=== PATIENT | male | born 1950 | race Caucasian/White ===

== ENCOUNTER 2019-09-04 01:40 | Observation (INO) ==
[2019-09-04] MEDS ORDERED: Isovue-370 500 ML BOTTLE IVP ONE (01:53)
[2019-09-04 02:34] LABS: Basophils % 0.4 %; Eosinophils # 0.1 K/mcL (0.0-0.6); Eosinophils % 1.8 %; Hematocrit 42.6 % (37.5-50.1); Hemoglobin 14.2 g/dL (12.9-16.9); Immature Granulocytes % 0.2 % (0-4); Lymphocytes # 0.9 K/mcL (0.6-4.6); Lymphocytes % 20.7 %; Mean Corpuscular HGB Conc 33.3 g/dL (31.6-35.5); Mean Corpuscular Hemoglobin 29.7 pg (28.0-33.3); Mean Corpuscular Volume 89.1 fL (83.0-100.0); Mean Platelet Volume 10.3 fL (9.4-12.4); Monocytes # 0.6 K/mcL (0.0-1.3); Monocytes % 12.3 %; Neutrophils # 2.9 K/mcL (1.6-8.9); Platelet Count 146 K/mcL (140-400); Red Blood Count 4.78 M/mcL (4.19-5.50); Red Cell Distribution Width 14.4 % (11.5-14.5); Segmented Neutrophils % 64.6 %; White Blood Count 4.6 K/mcL (4.3-11.1)
[2019-09-04 02:40] LABS: Prothrombin Time 11.6 Seconds (9.4-12.1)
[2019-09-04 02:42] LABS: Activated Partial Thrombo Time 28.5 Seconds (26.0-36.0)
[2019-09-04 02:56] LABS: Alanine Aminotransferase 11 Units/L (7-52); Albumin 4.1 g/dL (3.5-5.7); Albumin/Globulin Ratio 1.4 (1.1-2.2); Alkaline Phosphatase 95 Units/L (34-104); Amylase 53 Units/L (29-103); Aspartate Amino Transferase 17 Units/L (13-39); BUN/Creatinine Ratio 27 (6-26); Bilirubin,Indirect 0.5 mg/dL (0.0-1.0); Bilirubin,Total 0.5 mg/dL (0.3-1.0); Blood Urea Nitrogen 37 mg/dL (8-23); Calcium 10.1 mg/dL (8.6-10.3); Carbon Dioxide 30 mEq/L (23-29); Chloride 101 mEq/L (98-107); Glucose 165 mg/dL (70-105); Lipase 7 Units/L (11-82); Osmolality,Calculated 298 (280-300); Potassium 4.7 mEq/L (3.5-5.1); Sodium 138 mEq/L (136-145); Total Protein 7.1 g/dL (6.4-8.9); Troponin I < 0.03 ng/mL (< 0.04); eGFR For African Americans > 60 (> 60); eGFR For Non-African Americans 51 (> 60)
[2019-09-04 03:55] LABS: Bilirubin,Urine Small (Negative); Blood,Urine Negative (Negative); Clarity,Urine Clear (Clear); Color,Urine Yellow (Yellow); Glucose,Urine (UA) Normal (Normal); Ketones,Urine Trace mg/dL (Negative); Leukocyte Esterase,Urine Negative (Negative); Nitrite,Urine Negative (Negative); PH,Urine 5.5 pH Units (5.0-8.0); Protein,Urine Trace mg/dL (Neg-Trace); Specific Gravity,Urine 1.025 (1.010-1.025); Urobilinogen,Urine Normal (Normal)
[2019-09-04] MEDS ORDERED: Acetaminophen 325 MG TABLET PO PRN (07:21)
[2019-09-04] MEDS ORDERED: Naloxone 0.4 MG/ML INJ IVP PRN (07:21)
[2019-09-04] MEDS ORDERED: Ondansetron 4 MG/2 ML VIAL IVP PRN (07:21)
[2019-09-04] MEDS ORDERED: Nitroglycerin 0.4 MG TAB.SUBL SL PRN (07:26)
[2019-09-04] MEDS ORDERED: NON-FORMULARY MEDICATION 1 EACH EACH (Divalproex Sodium [Depakote] 250 MG) PO SCH (09:00)
[2019-09-04] MEDS: Aspirin Enteric Coated 81 MG Tablet PO SCH (09:21)
[2019-09-04] MEDS: carvediloL 6.25 MG TABLET PO SCH (09:22)
[2019-09-04] MEDS: Gabapentin 300 MG CAPSULE PO SCH ×3 (09:22→20:34)
[2019-09-04] MEDS: risperiDONE 0.25 MG TABLET PO SCH (09:22)
[2019-09-04] MEDS: D5% in Lactated Ringers 1,000 ML IVC SCH ×2 (10:39→23:53)
[2019-09-04] MEDS: Clotrimazole/Betameth Dip CRM 45 APPL/45 GM TUBE TP SCH (10:39)
[2019-09-04] MEDS ORDERED: Dextrose Gel 15 GM/37.5 ML TUBE PO PRN ×2 (13:54)
[2019-09-04] MEDS ORDERED: D5% in Water 1,000 ML IVC PRN (13:54)
[2019-09-04] MEDS ORDERED: *HR* Dextrose 50 % in Water (Syg) 50 ML SYRINGE IVP PRN (13:54)
[2019-09-04] MEDS: Divalproex Sodium 125 MG CAPSULE PO SCH ×2 (16:06→20:34)
[2019-09-04] MEDS: Insulin LISPRO 300 UNITS/3 ML VIAL SQ SCH (17:38)
[2019-09-04] MEDS: *HR* Heparin 5,000 UNIT/ML VIAL SQ SCH (17:38)
[2019-09-04] MEDS: Melatonin 3 MG TABLET PO SCH (20:33)
[2019-09-05] MEDS: Insulin LISPRO 300 UNITS/3 ML VIAL SQ SCH ×4 (01:07→18:04)
[2019-09-05] MEDS: D5% in Lactated Ringers 1,000 ML IVC SCH (04:35)
[2019-09-05] MEDS: *HR* Heparin 5,000 UNIT/ML VIAL SQ SCH ×2 (05:32→15:22)
[2019-09-05] MEDS ORDERED: Haloperidol Lactate 5 MG/ML VIAL IM ONE ×2 (06:41→19:56)
[2019-09-05] MEDS: Aspirin Enteric Coated 81 MG Tablet PO SCH (08:02)
[2019-09-05] MEDS: risperiDONE 0.25 MG TABLET PO SCH (08:02)
[2019-09-05] MEDS: Lisinopril 20 MG TABLET PO SCH (08:02)
[2019-09-05] MEDS: carvediloL 6.25 MG TABLET PO SCH (08:03)
[2019-09-05] MEDS: Gabapentin 300 MG CAPSULE PO SCH ×3 (08:03→22:17)
[2019-09-05] MEDS: Clotrimazole/Betameth Dip CRM 45 APPL/45 GM TUBE TP SCH (08:03)
[2019-09-05 14:01] LABS: Basophils % 0.9 %; Eosinophils # 0.1 K/mcL (0.0-0.6); Eosinophils % 1.8 %; Hematocrit 44.2 % (37.5-50.1); Hemoglobin 15.3 g/dL (12.9-16.9); Immature Granulocytes % 0.2 % (0-4); Lymphocytes # 0.7 K/mcL (0.6-4.6); Mean Corpuscular HGB Conc 34.6 g/dL (31.6-35.5); Mean Corpuscular Hemoglobin 29.8 pg (28.0-33.3); Mean Platelet Volume 9.8 fL (9.4-12.4); Monocytes # 0.4 K/mcL (0.0-1.3); Monocytes % 8.8 %; Neutrophils # 3.2 K/mcL (1.6-8.9); Platelet Count 151 K/mcL (140-400); Red Blood Count 5.14 M/mcL (4.19-5.50); Red Cell Distribution Width 13.9 % (11.5-14.5); Segmented Neutrophils % 72.3 %; White Blood Count 4.4 K/mcL (4.3-11.1)
[2019-09-05 14:18] LABS: BUN/Creatinine Ratio 23 (6-26); Blood Urea Nitrogen 17 mg/dL (8-23); Calcium 9.4 mg/dL (8.6-10.3); Carbon Dioxide 25 mEq/L (23-29); Chloride 101 mEq/L (98-107); Glucose 146 mg/dL (70-105); Magnesium 1.7 mg/dL (1.6-2.6); Osmolality,Calculated 288 (280-300); Phosphorous 2.9 mg/dL (2.7-4.5); Potassium 4.5 mEq/L (3.5-5.1); Sodium 137 mEq/L (136-145); eGFR For African Americans > 60 (> 60); eGFR For Non-African Americans > 60 (> 60)
[2019-09-05 15:01] LABS: Estimated Average Glucose 154 mg/dl
[2019-09-05] MEDS: Divalproex Sodium 125 MG CAPSULE PO SCH ×3 (15:26→22:16)
[2019-09-05] MEDS: Melatonin 3 MG TABLET PO SCH (22:17)
[2019-09-06] MEDS: Insulin LISPRO 300 UNITS/3 ML VIAL SQ SCH ×4 (00:19→18:47)
[2019-09-06] MEDS: Melatonin 3 MG TABLET PO PRN ×2 (02:03→23:33)
[2019-09-06] MEDS: *HR* Heparin 5,000 UNIT/ML VIAL SQ SCH ×2 (05:36→15:33)
[2019-09-06] MEDS: Gabapentin 300 MG CAPSULE PO SCH ×3 (09:55→23:34)
[2019-09-06] MEDS: Lisinopril 20 MG TABLET PO SCH (09:55)
[2019-09-06] MEDS: Aspirin Enteric Coated 81 MG Tablet PO SCH (09:55)
[2019-09-06] MEDS: risperiDONE 0.25 MG TABLET PO SCH (09:56)
[2019-09-06] MEDS: Clotrimazole/Betameth Dip CRM 45 APPL/45 GM TUBE TP SCH (09:56)
[2019-09-06] MEDS: carvediloL 6.25 MG TABLET PO SCH (09:56)
[2019-09-06] MEDS: Divalproex Sodium 125 MG CAPSULE PO SCH ×2 (15:34→23:34)
[2019-09-06] MEDS: Melatonin 3 MG TABLET PO SCH (23:32)
[2019-09-07] MEDS: Insulin LISPRO 300 UNITS/3 ML VIAL SQ SCH ×4 (00:46→16:27)
[2019-09-07] MEDS: *HR* Heparin 5,000 UNIT/ML VIAL SQ SCH ×2 (07:05→16:07)
[2019-09-07 07:33] LABS: Basophils % 0.5 %; Eosinophils # 0.1 K/mcL (0.0-0.6); Eosinophils % 1.4 %; Hematocrit 42.5 % (37.5-50.1); Immature Granulocytes % 0.2 % (0-4); Lymphocytes # 0.7 K/mcL (0.6-4.6); Lymphocytes % 17.1 %; Mean Corpuscular HGB Conc 35.3 g/dL (31.6-35.5); Mean Platelet Volume 10.3 fL (9.4-12.4); Monocytes # 0.4 K/mcL (0.0-1.3); Monocytes % 8.8 %; Neutrophils # 3.1 K/mcL (1.6-8.9); Platelet Count 169 K/mcL (140-400); Red Cell Distribution Width 13.8 % (11.5-14.5); White Blood Count 4.3 K/mcL (4.3-11.1)
[2019-09-07 07:55] LABS: BUN/Creatinine Ratio 22 (6-26); Blood Urea Nitrogen 17 mg/dL (8-23); Calcium 9.5 mg/dL (8.6-10.3); Carbon Dioxide 30 mEq/L (23-29); Chloride 98 mEq/L (98-107); Glucose 162 mg/dL (70-105); Osmolality,Calculated 289 (280-300); Potassium 4.6 mEq/L (3.5-5.1); Sodium 137 mEq/L (136-145); eGFR For African Americans > 60 (> 60); eGFR For Non-African Americans > 60 (> 60)
[2019-09-07] MEDS: risperiDONE 0.25 MG TABLET PO SCH (09:18)
[2019-09-07] MEDS: Aspirin Enteric Coated 81 MG Tablet PO SCH (09:18)
[2019-09-07] MEDS: carvediloL 6.25 MG TABLET PO SCH ×2 (09:18→16:06)
[2019-09-07] MEDS: Gabapentin 300 MG CAPSULE PO SCH ×3 (09:18→20:28)
[2019-09-07] MEDS: Lisinopril 20 MG TABLET PO SCH (09:18)
[2019-09-07] MEDS: Clotrimazole/Betameth Dip CRM 45 APPL/45 GM TUBE TP SCH (09:21)
[2019-09-07] MEDS: Divalproex Sodium 125 MG CAPSULE PO SCH ×2 (16:07→20:27)
[2019-09-08] MEDS: *HR* Heparin 5,000 UNIT/ML VIAL SQ SCH ×2 (06:27→16:19)
[2019-09-08 06:43] LABS: Basophils % 0.8 %; Eosinophils # 0.1 K/mcL (0.0-0.6); Eosinophils % 2.1 %; Hematocrit 46.3 % (37.5-50.1); Immature Granulocytes % 0.4 % (0-4); Lymphocytes # 0.8 K/mcL (0.6-4.6); Lymphocytes % 17.5 %; Mean Corpuscular HGB Conc 34.6 g/dL (31.6-35.5); Mean Corpuscular Hemoglobin 30.4 pg (28.0-33.3); Mean Corpuscular Volume 87.9 fL (83.0-100.0); Mean Platelet Volume 10.1 fL (9.4-12.4); Monocytes # 0.6 K/mcL (0.0-1.3); Monocytes % 11.5 %; Neutrophils # 3.2 K/mcL (1.6-8.9); Platelet Count 134 K/mcL (140-400); Red Blood Count 5.27 M/mcL (4.19-5.50); Red Cell Distribution Width 14.3 % (11.5-14.5); Segmented Neutrophils % 67.7 %; White Blood Count 4.8 K/mcL (4.3-11.1)
[2019-09-08 07:26] LABS: BUN/Creatinine Ratio 25 (6-26); Blood Urea Nitrogen 26 mg/dL (8-23); Calcium 9.2 mg/dL (8.6-10.3); Carbon Dioxide 22 mEq/L (23-29); Chloride 100 mEq/L (98-107); Glucose 130 mg/dL (70-105); Osmolality,Calculated 291 (280-300); Potassium 4.1 mEq/L (3.5-5.1); Sodium 137 mEq/L (136-145); eGFR For African Americans > 60 (> 60); eGFR For Non-African Americans > 60 (> 60)
[2019-09-08] MEDS ORDERED: Haloperidol Lactate 5 MG/ML VIAL IM ONE (08:08)
[2019-09-08] MEDS ORDERED: diazePAM 5 MG TABLET PO ONE (08:44)
[2019-09-08] MEDS: risperiDONE 0.25 MG TABLET PO SCH (08:48)
[2019-09-08] MEDS: Clotrimazole/Betameth Dip CRM 45 APPL/45 GM TUBE TP SCH (09:47)
[2019-09-08] MEDS: carvediloL 6.25 MG TABLET PO SCH ×2 (10:07→16:30)
[2019-09-08] MEDS: Gabapentin 300 MG CAPSULE PO SCH ×3 (10:07→19:53)
[2019-09-08] MEDS: Insulin LISPRO 300 UNITS/3 ML VIAL SQ SCH ×3 (10:07→16:19)
[2019-09-08] MEDS: Lisinopril 20 MG TABLET PO SCH (10:07)
[2019-09-08] MEDS: Aspirin Enteric Coated 81 MG Tablet PO SCH (10:07)
[2019-09-08] MEDS: Divalproex Sodium 125 MG CAPSULE PO SCH ×2 (16:19→19:53)
[2019-09-08] MEDS ORDERED: Insulin LISPRO 300 UNITS/3 ML VIAL SQ SCH (21:00)
[2019-09-08] MEDS ORDERED: *HR* LORazepam 2 MG/ML VIAL IVP PRN (23:27)
[2019-09-08] MEDS ORDERED: risperiDONE 1 MG TABLET PO ONE (23:30)
[2019-09-08] MEDS ORDERED: *HR* LORazepam 1 MG TABLET PO PRN (23:36)
[2019-09-08 23:58] LABS: VBG HCO3 30 mEq/L (21-27); VBG PCO2 52 mmHg (41-51); VBG PH 7.37 pH Units (7.32-7.42); VBG PO2 43 mmHg (25-50)
[2019-09-09 05:51] LABS: Basophils % 0.4 %; Eosinophils # 0.1 K/mcL (0.0-0.6); Eosinophils % 1.6 %; Hematocrit 39.2 % (37.5-50.1); Hemoglobin 14.1 g/dL (12.9-16.9); Immature Granulocytes % 0.2 % (0-4); Lymphocytes # 0.9 K/mcL (0.6-4.6); Lymphocytes % 16.7 %; Mean Corpuscular Hemoglobin 30.8 pg (28.0-33.3); Mean Corpuscular Volume 85.6 fL (83.0-100.0); Mean Platelet Volume 10.3 fL (9.4-12.4); Monocytes # 0.5 K/mcL (0.0-1.3); Monocytes % 10.6 %; Neutrophils # 3.6 K/mcL (1.6-8.9); Platelet Count 152 K/mcL (140-400); Red Blood Count 4.58 M/mcL (4.19-5.50); Red Cell Distribution Width 14.2 % (11.5-14.5); Segmented Neutrophils % 70.5 %; White Blood Count 5.1 K/mcL (4.3-11.1)
[2019-09-09 06:02] LABS: BUN/Creatinine Ratio 31 (6-26); Blood Urea Nitrogen 33 mg/dL (8-23); Calcium 9.2 mg/dL (8.6-10.3); Carbon Dioxide 27 mEq/L (23-29); Chloride 101 mEq/L (98-107); Glucose 155 mg/dL (70-105); Osmolality,Calculated 296 (280-300); Sodium 138 mEq/L (136-145); eGFR For African Americans > 60 (> 60); eGFR For Non-African Americans > 60 (> 60)
[2019-09-09] MEDS: *HR* Heparin 5,000 UNIT/ML VIAL SQ SCH (06:53)
[2019-09-09] MEDS: Insulin LISPRO 300 UNITS/3 ML VIAL SQ SCH ×2 (08:37→12:48)
[2019-09-09] MEDS ORDERED: risperiDONE 1 MG TABLET PO SCH ×2 (09:00)
[2019-09-09] MEDS: Aspirin Enteric Coated 81 MG Tablet PO SCH (09:46)
[2019-09-09] MEDS: Gabapentin 300 MG CAPSULE PO SCH ×2 (09:46→16:10)
[2019-09-09] MEDS: Clotrimazole/Betameth Dip CRM 45 APPL/45 GM TUBE TP SCH (09:46)
[2019-09-09] MEDS: carvediloL 6.25 MG TABLET PO SCH (09:46)
[2019-09-09] MEDS: Lisinopril 20 MG TABLET PO SCH (09:47)
[2019-09-09 12:50] VITALS: BP 135/77
== END 2019-09-09 16:45 ==
LOC: 2ANU 01:40 → EMEROOARM 01:40 → SUATTDRO 05:35 → 2ANU 06:03
PROVIDERS: ADMIT Internal Medicine; ATTEND Pharmacist